=== PATIENT | male | born 1945 | race Caucasian/White ===

== ENCOUNTER 2022-09-06 04:36 | Observation (INO) ==
[2022-09-06] MEDS ORDERED: dilTIAZem HCl 5 MG/ML 5 ML VIAL IV ONE (04:49)
[2022-09-06] MEDS ORDERED: STAT IV Infusion **Titration per Protocol STA (04:51)
[2022-09-06] MEDS ORDERED: dilTIAZem HCl 5 MG/ML 5 ML VIAL IV STA (04:51)
[2022-09-06] MEDS ORDERED: SODIUM CHLORIDE 0.9% 500 ML IV STA (04:51)
--- NOTE | 2022-09-06 04:58 | Emergency Department Note ---
History of Present Illness General Chief complaint: Chest Pain Stated complaint: CHEST PAIN, SOB Time Seen by Provider: 09/06/22 04:46 History of Present Illness This 77-year-old presents to the ER complaining of chest pain and racing heart tonight Location: Chest Quality: Discomfort Severity: Moderate Duration: Tonight Timing: Tonight Context: Patient was concerned and came in Modifying factors: better with nothing; worse with nothing Patient states he has had A. fib before but nothing prolonged. He has been cardioverted. He is in town visiting. Patient denies abdominal pain, fevers, vomiting, recent alcohol use. Home Medications Medication Instructions Recorded Confirmed Type albuterol sulfate 90 mcg/actuation 2 puff inhalation Q4 PRN Shortness 09/06/22 09/06/22 History aerosol inhaler Of Breath Or Wheezing amlodipine 10 mg tablet (Norvasc) 10 mg PO DAILY 09/06/22 09/06/22 History aspirin 81 mg tablet,delayed 81 mg PO DAILY 09/06/22 09/06/22 History release lisinopril 20 1 tab PO BID 09/06/22 09/06/22 History mg-hydrochlorothiazide 12.5 mg tablet pantoprazole 40 mg tablet,delayed 40 mg PO DAILY 09/06/22 09/06/22 History release rosuvastatin 5 mg tablet 5 mg PO DAILY 09/06/22 09/06/22 History umeclidinium 62.5 mcg-vilanterol 1 inh inhalation DAILY PRN 09/06/22 09/06/22 History 25 mcg/actuation powdr for Shortness Of Breath Or Wheezing inhalation (Anoro Ellipta) Allergies Allergy/AdvReac Type Severity Reaction Status Date / Time Beta-Blockers AdvReac decreased Verified 09/06/22 11:21 (Beta-Adrenergic Bloc heart rate penicillin G AdvReac Abdominal Verified 09/06/22 05:27 Pain warfarin AdvReac made legs Verified 09/06/22 11:21 purple Past Med/Surg History Medical History (Updated 09/06/22 @ 04:58 by Janett Gamble PA-C) High blood pressure Surgical History (Updated 09/06/22 @ 04:53 by Janett Gamble PA-C) History of heart artery stent Social History Smoking Status: Former smoker Preferred Language: Cymro Current Living Situation: Spouse Feels Safe at Home: Yes Assistive Devices: None Review of Systems A total of 10 systems reviewed and were otherwise negative Physical Exam Vital Signs Vital Signs - 24 hr 09/06/22 04:48 09/06/22 04:58 09/06/22 04:50 Temperature 36.7 C Temperature Source Oral Pulse Rate 136 H 119 H Pulse Rate [Finger] 81 Pulse Rate from SpO2 Sensor 137 H Respiratory Rate 20 18 16 Respiratory Effort / Characteristics Non-Labored Spontaneous Respiratory Depth Normal Normal Blood Pressure 160/102 H Blood Pressure [Right Arm] 112/81 Blood Pressure Mean 121 Blood Pressure Mean [Right Arm] 91 Pulse Oximetry 98 99 96 Oxygen Delivery Method Room Air Room Air Sepsis New/Unexplained Change in Mental Status N/A Sepsis Action Taken by Nursing No Action Required 09/06/22 04:58 09/06/22 04:58 09/06/22 05:00 Temperature Temperature Source Pulse Rate 81 Pulse Rate [Finger] Pulse Rate from SpO2 Sensor 82 Respiratory Rate 15 Respiratory Effort / Characteristics Respiratory Depth Blood Pressure 112/81 113/84 Blood Pressure [Right Arm] Blood Pressure Mean 91 93 Blood Pressure Mean [Right Arm] Pulse Oximetry 98 Oxygen Delivery Method Sepsis New/Unexplained Change in Mental Status Sepsis Action Taken by Nursing 09/06/22 05:00 09/06/22 05:30 09/06/22 05:30 Temperature Temperature Source Pulse Rate 99 H 83 Pulse Rate [Finger] Pulse Rate from SpO2 Sensor 86 Respiratory Rate 15 19 Respiratory Effort / Characteristics Respiratory Depth Blood Pressure 110/82 Blood Pressure [Right Arm] Blood Pressure Mean 91 Blood Pressure Mean [Right Arm] Pulse Oximetry 100 Oxygen Delivery Method Sepsis New/Unexplained Change in Mental Status Sepsis Action Taken by Nursing 09/06/22 06:00 09/06/22 06:00 09/06/22 06:30 Temperature Temperature Source Pulse Rate 83 93 H Pulse Rate [Finger] Pulse Rate from SpO2 Sensor 86 Respiratory Rate 16 14 Respiratory Effort / Characteristics Respiratory Depth Blood Pressure 106/74 Blood Pressure [Right Arm] Blood Pressure Mean 84 Blood Pressure Mean [Right Arm] Pulse Oximetry 95 Oxygen Delivery Method Sepsis New/Unexplained Change in Mental Status Sepsis Action Taken by Nursing 09/06/22 06:30 09/06/22 07:00 09/06/22 07:00 Temperature Temperature Source Pulse Rate 94 H Pulse Rate [Finger] Pulse Rate from SpO2 Sensor 93 H Respiratory Rate 20 Respiratory Effort / Characteristics Respiratory Depth Blood Pressure 104/72 100/81 Blood Pressure [Right Arm] Blood Pressure Mean 82 87 Blood Pressure Mean [Right Arm] Pulse Oximetry 96 Oxygen Delivery Method Sepsis New/Unexplained Change in Mental Status Sepsis Action Taken by Nursing 09/06/22 07:30 09/06/22 07:30 09/06/22 08:00 Temperature Temperature Source Pulse Rate 88 Pulse Rate [Finger] Pulse Rate from SpO2 Sensor Respiratory Rate 16 Respiratory Effort / Characteristics Respiratory Depth Blood Pressure 111/78 130/70 Blood Pressure [Right Arm] Blood Pressure Mean 89 90 Blood Pressure Mean [Right Arm] Pulse Oximetry Oxygen Delivery Method Sepsis New/Unexplained Change in Mental Status Sepsis Action Taken by Nursing 09/06/22 08:00 09/06/22 08:30 09/06/22 08:30 Temperature Temperature Source Pulse Rate 92 H 92 H Pulse Rate [Finger] Pulse Rate from SpO2 Sensor 90 91 H Respiratory Rate 16 18 Respiratory Effort / Characteristics Respiratory Depth Blood Pressure 109/77 Blood Pressure [Right Arm] Blood Pressure Mean 87 Blood Pressure Mean [Right Arm] Pulse Oximetry 95 96 Oxygen Delivery Method Sepsis New/Unexplained Change in Mental Status Sepsis Action Taken by Nursing 09/06/22 09:00 09/06/22 09:00 09/06/22 09:30 Temperature Temperature Source Pulse Rate 88 Pulse Rate [Finger] Pulse Rate from SpO2 Sensor 91 H Respiratory Rate 19 Respiratory Effort / Characteristics Respiratory Depth Blood Pressure 134/84 131/75 Blood Pressure [Right Arm] Blood Pressure Mean 100 93 Blood Pressure Mean [Right Arm] Pulse Oximetry 94 Oxygen Delivery Method Sepsis New/Unexplained Change in Mental Status Sepsis Action Taken by Nursing 09/06/22 09:30 09/06/22 10:00 09/06/22 10:00 Temperature Temperature Source Pulse Rate 105 H 102 H Pulse Rate [Finger] Pulse Rate from SpO2 Sensor Respiratory Rate 14 13 Respiratory Effort / Characteristics Respiratory Depth Blood Pressure 127/105 H Blood Pressure [Right Arm] Blood Pressure Mean 112 Blood Pressure Mean [Right Arm] Pulse Oximetry 98 Oxygen Delivery Method Sepsis New/Unexplained Change in Mental Status Sepsis Action Taken by Nursing VITALS: Vitals are noted on the nurse's note and reviewed by myself. Vital signs tachycardic. GENERAL: Pleasant gentleman, in no acute distress, nondiaphoretic, well- developed well-nourished. SKIN: The skin was without rashes, erythema, edema, or bruising. There is no tenting of the skin. Capillary reflex less than 2 seconds. HEAD: Normocephalic atraumatic. EARS: External auditory canals clear, EYES: Pupils equal round and reactive to light and accommodation. Conjunctivae without injection, sclerae without icterus. Extraocular movements intact. NOSE: Patent, turbinates without inflammation or discharge. MOUTH: Mucous membranes moist. Pharynx without erythema or exudate. Uvula midline. Airway patent. Tongue does not deviate. NECK: Supple without nuchal rigidity. No lymphadenopathy. No thyromegaly. Cervical spine is nontender. No JVD. HEART: Irregularly irregular LUNGS: Clear to auscultation bilaterally without wheezes, rales or rhonchi. No retractions or accessory muscle use. ABDOMEN: Positive bowel sounds x 4. Normal tympanic percussion. Soft, nontender, without masses or organomegaly. Cardona sign negative. No guarding or rebound tenderness. No CVA tenderness MUSCULOSKELETAL: No muscle atrophy, erythema, or edema noted. NEURO: Patient was alert and oriented to person place and time. Normal sensation to light and sharp touch. No focal neurological deficits. Course Administered Medications Diltiazem HCl 125 mg/ Dextrose 125 mls @ 5 mls/hr IV .Q24H [facility]; Protocol Stop: 10/06/22 04:59 Last Admin: 09/06/22 06:37 Dose: Not Given Documented By: AMELIE Discontinued Medications Diltiazem HCl (Diltiazem Hcl 5 Mg/Ml 5 Ml Vial) Confirm Administered Dose 25 mg IV .ST-MED ONE Stop: 09/06/22 04:50 Last Admin: 09/06/22 04:55 Dose: Not Given Documented By: MOJGAN Diltiazem HCl (Diltiazem Hcl 5 Mg/Ml 5 Ml Vial) 20 mg IV NOW STA Stop: 09/06/22 04:52 Last Admin: 09/06/22 04:50 Dose: 20 mg Documented By: MOJGAN Co-signed By: TRAY Sodium Chloride (Nss) 500 mls @ 999 mls/hr IV .Q31M STA Stop: 09/06/22 05:21 Last Infusion: 09/06/22 05:22 Dose: 0 mls/hr Documented By: Admin: 09/06/22 04:55 Dose: 999 mls/hr Documented By: MOJGAN Sodium Chloride (Nss 1000ml) 1,000 mls @ 100 mls/hr IV .Q10H ONE Stop: 09/06/22 21:58 Last Admin: 09/06/22 14:10 Dose: Not Given Documented By: HALLE Ioversol (Optiray 320 500ml) 125 ml IV ONCE ONE Stop: 09/06/22 06:19 Last Admin: 09/06/22 06:19 Dose: 107 ml Documented By: SLICK Metoprolol Tartrate (Metoprolol Tartrate 1 Mg/Ml Vial) 5 mg IV NOW STA Stop: 09/06/22 11:52 Last Admin: 09/06/22 12:41 Dose: 5 mg Documented By: HALLE Miscellaneous (Stat Iv Infusion Titration Per Protocol) 1 each N/A NOW STA Stop: 09/06/22 04:52 Last Admin: 09/06/22 06:37 Dose: Not Given Documented By: AMELIE Miscellaneous Information (Patient's Allergy Info Needs Entered) 1 each N/A NOW STA Stop: 09/06/22 05:03 Last Admin: 09/06/22 05:27 Dose: 1 each Documented By: AMELIE Nitroglycerin (Nitroglycerin Sl 0.4 Mg/Tab Tab) Confirm Administered Dose 0.4 mg .ROUTE .STK-MED ONE Stop: 09/06/22 11:41 Last Admin: 09/06/22 11:42 Dose: 0.4 mg Documented By: HALLE Nitroglycerin (Nitroglycerin Sl 0.4 Mg/Tab Tab) 0.4 mg SL NOW STA Stop: 09/06/22 11:49 Last Admin: 09/06/22 11:50 Dose: Not Given Documented By: ED Potassium Chloride (Potassium Chloride Crtab 20 Meq Tabcr) 40 meq PO NOW STA Stop: 09/06/22 14:35 Last Admin: 09/06/22 15:23 Dose: 40 meq Documented By: MICHOACANO Medical Decision Making Medical Records Attestation: I reviewed the patient's medical records. Home Medications Current Medication List: was personally reviewed by me Laboratory Data Attestation: I reviewed the patient's lab results. Result diagrams: 09/06/22 04:51 09/06/22 04:51 Lab Results 09/06/22 09/06/22 09/06/22 Range/Units 04:51 04:51 04:51 WBC 5.13 (4.8-10.8) K/ul RBC 4.53 L (4.63-6.08) M/uL Hgb 13.6 L (14.0-18.0) g/dl POC Hgb (14.0-18.0) g/dl Hct 40.1 (40.1-51.0) % POC Hct (42-52) % MCV 88.5 (80.0-100.0) fL MCH 30.0 (25.0-34.0) pg MCHC 33.9 (32.0-36.0) g/dL RDW Std Deviation 43.3 (36.4-46.3) fL RDW Coeff of Helene 13.3 (11.5-14.5) % Plt Count 152 (130-400) K/uL MPV 12.0 (9.4-12.4) fL Immature Gran % (Auto) 0.2 % Neut % (Auto) 56.9 % Lymph % (Auto) 29.6 % [place] % (Auto) 10.9 % Eos % (Auto) 1.6 % Baso % (Auto) 0.8 % Neut # (Auto) 2.92 (1.4-6.5) K/uL Lymph # (Auto) 1.52 (1.2-3.4) K/uL [place] # (Auto) 0.56 (0.24-0.82) K/uL Eos # (Auto) 0.08 (0-0.50) K/uL Baso # (Auto) 0.04 (0-0.2) K/uL Immature Gran # (Auto) 0.01 (0.00-0.02) K/uL POC Sodium (135-144) mmol/L Sodium 137 (136-145) mmol/L POC Potassium (3.3-5.0) mmol/L Potassium 3.2 L (3.5-5.1) mmol/L POC Chloride (101-112) mmol/L Chloride 102 (98-107) mmol/L Carbon Dioxide 29 (21-32) mmol/L POC Total CO2 (24-31) mmol/L Anion Gap 6 (3-11) POC Anion Gap (16-25) mmol/L POC BUN (7-18) mg/dl BUN 17 (6-23) mg/dl Creatinine 0.81 (0.6-1.4) mg/dl POC Creatinine (0.6-1.3) mg/dl Est Cr Clr Drug Dosing 88.8 ml/min Est GFR ( Amer) 99.4 ml/min Est GFR (Non-Af Amer) 85.7 ml/min BUN/Creatinine Ratio 21.0 H (10-20) Glucose 113 H (70-99(Fasting)) mg/dl POC Glucose (other) (70-99) mg/dl Calcium 9.8 (8.5-10.1) mg/dl POC Ioniz Calcium Mimi (1.12-1.32) mmol/l Magnesium 2.0 (1.7-2.4) mg/dl Total Bilirubin 0.4 (0.2-1.0) mg/dl AST 20 (13-39) U/L ALT 13 (7-52) U/L Alkaline Phosphatase 69 (34-104) U/L Troponin I High Sens 7.6 (0-20) pg/ml Total Protein 7.3 (6.0-8.3) gm/dl Albumin 4.6 (3.4-5.0) gm/dl Globulin 2.7 (2.5-4.0) gm/dl Albumin/Globulin Ratio 1.7 (0.9-2) TSH 2.146 (0.300-4.500) uIu/ml SARS-CoV-2, RNA, NAAT (NEGATIVE) 09/06/22 09/06/22 09/06/22 Range/Units 04:56 05:03 07:05 WBC (4.8-10.8) K/ul RBC (4.63-6.08) M/uL Hgb (14.0-18.0) g/dl POC Hgb 14.3 (14.0-18.0) g/dl Hct (40.1-51.0) % POC Hct 42 (42-52) % MCV (80.0-100.0) fL MCH (25.0-34.0) pg MCHC (32.0-36.0) g/dL RDW Std Deviation (36.4-46.3) fL RDW Coeff of Helene (11.5-14.5) % Plt Count (130-400) K/uL MPV (9.4-12.4) fL Immature Gran % (Auto) % Neut % (Auto) % Lymph % (Auto) % [place] % (Auto) % Eos % (Auto) % Baso % (Auto) % Neut # (Auto) (1.4-6.5) K/uL Lymph # (Auto) (1.2-3.4) K/uL [place] # (Auto) (0.24-0.82) K/uL Eos # (Auto) (0-0.50) K/uL Baso # (Auto) (0-0.2) K/uL Immature Gran # (Auto) (0.00-0.02) K/uL POC Sodium 139 (135-144) mmol/L Sodium (136-145) mmol/L POC Potassium 3.2 L (3.3-5.0) mmol/L Potassium (3.5-5.1) mmol/L POC Chloride 99 L (101-112) mmol/L Chloride (98-107) mmol/L Carbon Dioxide (21-32) mmol/L POC Total CO2 27 (24-31) mmol/L Anion Gap (3-11) POC Anion Gap 18.0 (16-25) mmol/L POC BUN 17 (7-18) mg/dl BUN (6-23) mg/dl Creatinine (0.6-1.4) mg/dl POC Creatinine 0.8 (0.6-1.3) mg/dl Est Cr Clr Drug Dosing ml/min Est GFR ( Amer) ml/min Est GFR (Non-Af Amer) ml/min BUN/Creatinine Ratio (10-20) Glucose (70-99(Fasting)) mg/dl POC Glucose (other) 112 H (70-99) mg/dl Calcium (8.5-10.1) mg/dl POC Ioniz Calcium Mimi 1.18 (1.12-1.32) mmol/l Magnesium (1.7-2.4) mg/dl Total Bilirubin (0.2-1.0) mg/dl AST (13-39) U/L ALT (7-52) U/L Alkaline Phosphatase (34-104) U/L Troponin I High Sens 10.3 (0-20) pg/ml Total Protein (6.0-8.3) gm/dl Albumin (3.4-5.0) gm/dl Globulin (2.5-4.0) gm/dl Albumin/Globulin Ratio (0.9-2) TSH (0.300-4.500) uIu/ml SARS-CoV-2, RNA, NAAT NEGATIVE (NEGATIVE) Imaging Data Attestation: I personally reviewed and interpreted this imaging study as follows: Radiologist's Impression: Chest X-Ray 09/06/22 04:58 SINGLE VIEW CHEST CLINICAL HISTORY: Atypical chest pain FINDINGS: 2 AP, portable, upright chest radiographs are obtained. No prior studies are available for comparison at the time of dictation. The heart is mildly enlarged noting atherosclerotic calcification of the thoracic aorta. The pulmonary vasculature is noncongested. Chronic interstitial thickening is similar to previous. There are scattered calcified granulomas. There is elevation of the left hemidiaphragm with left basilar scarring/atelectasis. No airspace consolidation or large pleural effusion is identified. No pneumothorax is seen. The skeletal structures are osteopenic. Degenerative change and moderate thoracal lumbar scoliosis are seen in the spine. The bony thorax is grossly intact. IMPRESSION: No active disease in the chest. ACT 112: Negative or not required by law. Electronically signed by: Sage eLmos M.D. 09/06/2022 8:05 AM Chest CTA 09/06/22 05:56 CT angio chest dissec wo/w con HISTORY: 77 years-old Male cp-back, cxr wide mediastium acute chest and back pain COMPARISON: Chest radiograph of same day TECHNIQUE: CTA of the chest was obtained both with and without the use of 107 mL Optiray 320. 3-D coronal and sagittal MIPS were obtained from the axial data set and were submitted for review. All measurements were obtained according to N ASCET criteria. FINDINGS: CTA: The heart is upper limits of normal in size. No pericardial effusion. Extensive coronary artery calcifications. There is mild fusiform ectasia of the ascending thoracic aorta measuring up to 3.9 x 3.9 cm at the level of the main pulmonary artery. Atherosclerosis of the thoracic aorta without dissection. There is appr oximately 50% luminal narrowing involving the proximal 2 cm of the superior mesenteric artery secondary to atherosclerotic plaque. The opacified pulmonary artery is unremarkable. The noncontrast scan demonstrates no intramural or mediastinal hematoma. CT CHEST: Normal thyroid. No pathologically enlarged lymph nodes are identified. Moderate to marked symmetric gynecomastia. No pleural effusion, airspace consolidation or overt pulmonary edema. 4 mm solid nodule of the right lung apex on image 53. There are several scattered subpleural predominant calcified pulmonary granulomata noted bilaterally. 4 mm subpleural solid nodule of the right lower lobe, image 179. Postresection changes of the left lung. There are a few solid nodules noted within the left lung measuring up to 3 mm. The central airways are patent. Tiny hiatal hernia. Moderate colonic fecal retention. Moderate mid thoracic dextroscoliosis. Degenerative changes of the shoulders and spine. IMPRESSION: 1. 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 No aneurysm or dissection. 2. Prior left lower lobectomy. 3. Scattered calcified pulmonary granulomata noted in addition to low suspicion solid pulmonary nodules measuring up to 4 mm. 4. Moderate mid thoracic dextroscoliosis. 5. Gynecomastia. Please refer to below summary of Fleischner criteria recommendations for follow- up of incidental CT nodules (Manuel Tierney, Guidelines for management of small pulmonary nodules detected on CT scans: A statement from the Fleischner Society, Radiology 237: [id number].) SOLID NODULES Multiple nodules size: <6 mm * Low risk patients: no routine follow-up * high risk patients: optional CT at 12 months Note: newly detected indeterminate nodule in persons 35 years of age or older. * Low risk patients: minimal or absent history of smoking and/or other known risk factors * high risk patients: history of smoking or of other known risk factors (e.g. first degree relative with lung cancer, or exposure to asbestos, radon, uranium) * if a nodule up to 8 mm is partly solid or is ground glass further follow-up is required after 24 months to exclude possible slow growing adenocarcinoma (LEIF) ACT 112: Negative or not required by law. The above report was generated using voice recognition software. It may contain grammatical, syntax or spelling errors. Electronically signed by: Juan A Infante M.D. 09/06/2022 7:24 AM MDM Narrative Prior records/ancillary studies reviewed. Triage Nursing notes reviewed. Additional history obtained from family. The patient's history was concerning for palpitations and chest pain. Differential diagnosis: Etiologies such as A. fib, cardiac ischemia, aortic dissection, pulmonary embolism, pneumonia, pneumothorax, musculoskeletal, infections, pericarditis, myocarditis, esophageal rupture, gastrointestinal, as well as others were entertained. Physical examination: As above. ER treatment provided: An order was placed for continuous cardiac monitoring. The monitor shows a rate of 60-1 80 with a A. fib rhythm. Cardizem with drip, IV fluids On reassessment the patient felt better. Diagnostic interpretation by me: #1 the electrocardiogram was ordered for chest pain EKG: Irregularly irregular with occasional PVC, ST depressions in the inferior leads and lateral leads, rate of 135. Impression A. fib with RVR with ST depre ssions in the inferior lateral leads with occasional PVC interpreted by myself EKG shows no interval abnormalities such as QT prolongation or WPW. There are no findings to suggest Brugada syndrome. Hypertrophic cardiomyopathy was considered but there are no clear historical elements pointing toward this. EKG is not suggestive. The QRS voltage is not extremely large #2 EKG ordered for chest pain EKG: Irregularly irregular, Occasional PVC, ST depression in the lateral leads, rate of 84. Impression A. fib/a flutter with rate improved with occasional PVC with ST depressions in lateral leads interpreted by myself The labs revealed mild anemia Negative troponin and repeat was ordered Imaging studies: Chest x-ray w/ no acute pneumothorax, free air or consolidation per my interpretation. scoliosis present, ? widen mediastium vs scoliosis as above HEART SCORE: Hx: high/mod/low suspicion: 1 ECG: ST depression/nonspecific changes/normal: 1 Age: Greater than 65/45-64/less than 45: 2 Risk factors: (Hypertension, hyperlipidemia, diabetes, coronary disease, tobacco use, cocaine use): 1 Troponin: Greater than 2 times normal limits/1-2 times normal limits/normal: 0 Total: 5 Consultation: A consultation was placed with the hospitalist. The case was discussed and diagnostics were reviewed. The patient was evaluated in the ER for further treatment. Exam and history seem consistent with A. fib/a flutter with RVR. Patient was given Cardizem and started on a drip. He was reassessed multiple times. Medicine is consulted. He will be evaluated for admission. By the evaluation o utlined above emergent etiologies such as aortic dissection, pulmonary embolism, pneumonia, pneumothorax, infections, pericarditis, myocarditis, gastrointestinal, as well as others were deemed relatively unlikely. The pt informed about the findings as listed above. All questions were answered and pleased with the treatment. The chart was completed utilizing [employer] Speech voice recognition software. Grammatical errors, random word insertions, pronoun errors, and incomplete sentences are an occassional consequence of this system due to software limitations, ambient noise, and hardware issues. Any formal questions or concerns about the content, text, or information contained within the body of this dictation should be directly addressed to the physician commercial loan assistant for clarification. Impression & Plan Atrial fibrillation with rapid ventricular response, Chest pain Discharge Plan Visit Data Chief Complaint: Chest Pain Stated Complaint: CHEST PAIN, SOB ED Provider: Britt Mac ED Midlevel Provider: Janett Gamble Discharge Problem: Atrial fibrillation with rapid ventricular response, Chest pain Patient Disposition: Admitted As Inpatient Condition: Fair Discharge Instructions Interventions: ED Discharge Assessment Last Done: 09/06/22 12:07
[2022-09-06] MEDS ORDERED: dilTIAZem HCL 125 MG in DEXTROSE 5% 100 ML IV SCH (05:00)
[2022-09-06] MEDS ORDERED: Patient's ALLERGY Info needs ENTERED STA (05:02)
[2022-09-06 05:03] LABS: Basophils # (auto) 0.04 K/uL (0-0.2); Basophils % (auto) 0.8 %; Eosinophils # (auto) 0.08 K/uL (0-0.50); Eosinophils % (auto) 1.6 %; Hematocrit (blood only) 40.1 % (40.1-51.0); Hemoglobin 13.6 g/dl (14.0-18.0); Immature Granulocytes # (auto) 0.01 K/uL (0.00-0.02); Immature Granulocytes % (auto) 0.2 %; Lymphocytes # (auto) 1.52 K/uL (1.2-3.4); Lymphocytes % (auto) 29.6 %; Mean Corpuscular Hgb Conc 33.9 g/dL (32.0-36.0); Mean Corpuscular Volume 88.5 fL (80.0-100.0); Monocytes # (auto) 0.56 K/uL (0.24-0.82); Monocytes % (auto) 10.9 %; Neutrophils # (auto) 2.92 K/uL (1.4-6.5); Neutrophils % (auto) 56.9 %; Platelet Count 152 K/uL (130-400); RDW Coefficient of Variation 13.3 % (11.5-14.5); RDW Standard Deviation 43.3 fL (36.4-46.3); Red Blood Count 4.53 M/uL (4.63-6.08); White Blood Count 5.13 K/ul (4.8-10.8)
[2022-09-06 05:09] LABS: iSTAT Creatinine 0.8 mg/dl (0.6-1.3); iSTAT Hemoglobin 14.3 g/dl (14.0-18.0); iSTAT Ionized Calcium 1.18 mmol/l (1.12-1.32); iSTAT Potassium 3.2 mmol/L (3.3-5.0)
[2022-09-06 05:26] LABS: Albumin Globulin Ratio 1.7 (0.9-2); Albumin Level 4.6 gm/dl (3.4-5.0); Bilirubin,Total 0.4 mg/dl (0.2-1.0); Calcium 9.8 mg/dl (8.5-10.1); Creatinine Clr Calc Pharmacy 88.8 ml/min; Est GFR (African American) 99.4 ml/min; Est GFR (Non-African American) 85.7 ml/min; Globulin 2.7 gm/dl (2.5-4.0); Potassium 3.2 mmol/L (3.5-5.1); Total Protein 7.3 gm/dl (6.0-8.3)
[2022-09-06 05:28] LABS: Troponin I High Sensitivity 7.6 pg/ml (0-20)
[2022-09-06] MEDS ORDERED: OPTIRAY 320 500ml IV ONE (06:18)
--- NOTE | 2022-09-06 07:26 | CT Scan Report ---
CT angio chest dissec wo/w con HISTORY: 77 years-old Male cp-back, cxr wide mediastium acute chest and back pain COMPARISON: Chest radiograph of same day TECHNIQUE: CTA of the chest was obtained both with and without the use of 107 mL Optiray 320. 3-D cor onal and sagittal MIPS were obtained from the axial data set and were submitted for review. All measu rements were obtained according to NASCET criteria. FINDINGS: CTA: The heart is upper limits of normal in size. No pericardial effusion. Extensive coronary artery calci fications. There is mild fusiform ectasia of the ascending thoracic aorta measuring up to 3.9 x 3.9 c m at the level of the main pulmonary artery. Atherosclerosis of the thoracic aorta without dissection . There is approximately 50% luminal narrowing involving the proximal 2 cm of the superior mesenteric artery secondary to atherosclerotic plaque. The opacified pulmonary artery is unremarkable. The nonc ontrast scan demonstrates no intramural or mediastinal hematoma. CT CHEST: Normal thyroid. No pathologically enlarged lymph nodes are identified. Moderate to marked symmetric g ynecomastia. No pleural effusion, airspace consolidation or overt pulmonary edema. 4 mm solid nodule of the right lung apex on image 53. There are several scattered subpleural predominant calcified pulm onary granulomata noted bilaterally. 4 mm subpleural solid nodule of the right lower lobe, image 179. Postresection changes of the left lung. There are a few solid nodules noted within the left lung niraj suring up to 3 mm. The central airways are patent. Tiny hiatal hernia. Moderate colonic fecal retention. Moderate mid thoracic dextroscoliosis. Degenera tive changes of the shoulders and spine. IMPRESSION: 1. 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 No aneurysm or dissection. 2. Prior left lower lobectomy. 3. Scattered calcified pulmonary granulomata noted in addition to low suspicion solid pulmonary nodul es measuring up to 4 mm. 4. Moderate mid thoracic dextroscoliosis. 5. Gynecomastia. Please refer to below summary of Fleischner criteria recommendations for follow-up of incidental CT n odules (Manuel Tierney, Guidelines for management of small pulmonary nodules detected on CT scans: A sta tement from the Fleischner Society, Radiology 237: [id number].) SOLID NODULES Multiple nodules size: <6 mm * Low risk patients: no routine follow-up * high risk patients: optional CT at 12 months Note: newly detected indeterminate nodule in persons 35 years of age or older. * Low risk patients: minimal or absent history of smoking and/or other known risk factors * high risk patients: history of smoking or of other known risk factors (e.g. first degree relative with lung cancer, or exposure to asbestos, radon, uranium) * if a nodule up to 8 mm is partly solid or is ground glass further follow-up is required after 24 m [address] to exclude possible slow growing adenocarcinoma (LEIF) ACT 112: Negative or not required by law. The above report was generated using voice recognition software. It may contain grammatical, syntax o r spelling errors. Electronically signed by: Juan A Infante M.D. 09/06/2022 7:24 AM
--- NOTE | 2022-09-06 08:06 | XRay Report ---
SINGLE VIEW CHEST CLINICAL HISTORY: Atypical chest pain FINDINGS: 2 AP, portable, upright chest radiographs are obtained. No prior studies are available for comparison at the time of dictation. The heart is mildly enlarged noting atherosclerotic calcificatio n of the thoracic aorta. The pulmonary vasculature is noncongested. Chronic interstitial thickening i s similar to previous. There are scattered calcified granulomas. There is elevation of the left hemid iaphragm with left basilar scarring/atelectasis. No airspace consolidation or large pleural effusion is identified. No pneumothorax is seen. The skeletal structures are osteopenic. Degenerative change a nd moderate thoracal lumbar scoliosis are seen in the spine. The bony thorax is grossly intact. IMPRESSION: No active disease in the chest. ACT 112: Negative or not required by law. Electronically signed by: Sage Lemos M.D. 09/06/2022 8:05 AM
--- NOTE | 2022-09-06 10:47 | History & Physical Report ---
Date of Service September 06, 2022 Assessment & Plan (1) Atrial fibrillation with rapid ventricular response: (2) Chest pain: (3) COPD (chronic obstructive pulmonary disease): (4) HLD (hyperlipidemia): (5) HTN (hypertension): (6) GERD (gastroesophageal reflux disease): Plan A fib with RVR Chest pain -Troponin negative X3. chest CTA and CXR negative for anything acute. -Patient improved with metoprolol IV 5mg. Patient's CP is improving and RVR no longer seen on EKG. -Will transition to metoprolol succinate 25mg HS and see how patient tolerates -Potassium slightly low on labs. Will replete K -Patient has a listed allergy to beta blockers staying that they "decrease his HR". When asked about this allergy patient states that when his HR is in the 50's a beta moise drops his HR to 30-40's -Will continue to monitor HR but believe this is not a true allergy. Will need f/u with PCP and his block hacker regarding further treatment of his paroxysmal a fib. May be sick sinus syndrome underlying potential allergy. -Patient was on Eliquis in the past but is unsure why it was stopped. Patient should discuss with his PCP about AC in the future given his A fib. HLD -Holding home meds. HTN -Holding home meds. COPD -Holding home meds. GERD -Holding home meds. Fluids: none Nutrition: heart healthy Code status: conditional code Dispo: med/surg with tele Thank you for allowing me to participate in the care of your patient. -Dr. 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 He has previously been cardioverted in the past for his A fib. States that he was on Eliquis for A fib in the past but his block hacker stopped it 3 months ago. He was unable to tell me the reason why he stopped this medication. Patient is not from the [facility] and gets most of his care in [place]. Past medical history provided by the patient. Presented to the ED chest pain and racing heart rate. States that at 4am, he suddenly woke up due to his chest pain. He describes it has sharp chest pain located over the middle of his chest. Patient has also been having some SOB on exterion and a dry cough for some time. Patient states that perviously he has never had CP before cardiac caths. While in the ED patient was found to be in A Fib with RVR. CBC, CMP, TSH were unremarkable. Troponin X3 was negative. Primary Care Provider: NO PCP Allergies Allergy/AdvReac Type Severity Reaction Status Date / Time Beta-Blockers AdvReac decreased Verified 09/06/22 11:21 (Beta-Adrenergic Bloc heart rate penicillin G AdvReac Abdominal Verified 09/06/22 05:27 Pain warfarin AdvReac made legs Verified 09/06/22 11:21 purple Home Medications Medication Instructions Recorded Confirmed Type albuterol sulfate 90 mcg/actuation 2 puff inhalation Q4 PRN Shortness 09/06/22 09/06/22 History aerosol inhaler Of Breath Or Wheezing amlodipine 10 mg tablet (Norvasc) 10 mg PO DAILY 09/06/22 09/06/22 History aspirin 81 mg tablet,delayed 81 mg PO DAILY 09/06/22 09/06/22 History release lisinopril 20 1 tab PO BID 09/06/22 09/06/22 History mg-hydrochlorothiazide 12.5 mg tablet pantoprazole 40 mg tablet,delayed 40 mg PO DAILY 09/06/22 09/06/22 History release rosuvastatin 5 mg tablet 5 mg PO DAILY 09/06/22 09/06/22 History umeclidinium 62.5 mcg-vilanterol 1 inh inhalation DAILY PRN 09/06/22 09/06/22 History 25 mcg/actuation powdr for Shortness Of Breath Or Wheezing inhalation (Anoro Ellipta) Past Med/Surg History Medical History (Updated 09/06/22 @ 23:07 by Sage Daly DO) High blood pressure Surgical History (Updated 09/06/22 @ 04:53 by Janett Gamble PA-C) History of heart artery stent Social History Smoking Status: Former smoker Cigarettes Per Day: 0.25 pack; Smoking End Date: 2002; Second Hand Exposure: Yes; Do You Dip or Chew Tobacco: No; Tobacco Cessation Education Requested by Patient: No Hx Alcohol Use: No Hx Substance Use: No Preferred Language: Kyrgyz Communication Ability: Effective Paint Specialist Required: No Beliefs That Will Affect Care: None Current Living Situation: Spouse Other Information That Helps Us Care for You: No Feels Safe at Home: Yes Safety Concerns: Feels Safe At This Time Assistive Devices: None Review of Systems Review of Systems: Constitutional: denies fever, chills, fatigue HEENT: denies congestion, sore throat CV: +chest pain, palpitations Resp: denies shortness of breath, cough GI: denies abdominal pain, nausea, vomiting, constipation, diarrhea : denies pain with urination, change in urinary frequency Neuro: denies new numbness, tingling, weakness Physical Exam Constitutional: well developed and + well hydrated Eyes: PERRL, conjunctivae normal, anicteric sclerae Respiratory: normal respiratory effort, lungs clear to auscultation Cardiovascular: Rate/Rhythm: + tachycardic and + irregularly irregular Extremities: no edema Gastrointestinal (Abdomen): normal bowel sounds, soft, nontender, no hepatosplenomegaly Musculoskeletal: no cyanosis or clubbing, extremities motor strength 5/5 Results & Data Results & Data ([facility]) Vital Signs (Past 12 Hours) Vital Signs Temp Pulse Pulse Resp BP BP Pulse Ox 09/06/22 10:20 113 H 14 105/80 98 09/06/22 08:00 92 H 16 95 09/06/22 08:00 130/70 09/06/22 07:30 88 16 09/06/22 07:30 111/78 09/06/22 07:00 94 H 20 96 09/06/22 07:00 100/81 09/06/22 06:30 104/72 09/06/22 06:30 93 H 14 09/06/22 06:00 83 16 95 09/06/22 06:00 106/74 09/06/22 05:30 83 19 09/06/22 05:30 110/82 09/06/22 05:00 99 H 15 100 09/06/22 05:00 113/84 09/06/22 04:58 112/81 09/06/22 04:58 81 15 98 09/06/22 04:50 119 H 16 96 09/06/22 04:58 36.7 C 81 18 112/81 99 09/06/22 04:48 136 H 20 160/102 H 98 O2 Del Method 09/06/22 10:20 Room Air 09/06/22 08:00 09/06/22 08:00 09/06/22 07:30 09/06/22 07:30 09/06/22 07:00 09/06/22 07:00 09/06/22 06:30 09/06/22 06:30 09/06/22 06:00 09/06/22 06:00 09/06/22 05:30 09/06/22 05:30 09/06/22 05:00 09/06/22 05:00 09/06/22 04:58 09/06/22 04:58 09/06/22 04:50 09/06/22 04:58 Room Air 09/06/22 04:48 Room Air Code Status & VTE Plan VTE Prophylaxis Plan VTE Prophylaxis will be ordered: Yes Supervising Physician Co-Signing Physician Notes I personally examined the patient and verified all rondon points of history and exam, discussed case, and agree with decision making with Dr Daly. Feeling better. Chest pain mostly gone. Notes that he is under a lot of stressnotes he is not sure why because he is normally not a high stress person, but coming in the context of his son moving seems to have been more stressedhe wonders if that may play a role Vitals noted, in general he is awake and alert no distress. HEENT normocephalic atraumatic mucous membranes moist. Cardio is A. fib around 100 210 on the monitor. Neuro no focal deficits. Skin without rashes pallor or icterus. A. fib/RVRrate control improving. I wonder if he is not working towards sick sinus syndrome given that he was bradycardic with beta-blockers before, tac hycardic often nowthat said, nothing clearly indicating this, more than he will definitely does need close and ongoing outpatient follow-up. Discussed ways to do close and fairly accurate home monitoring. Discussed anticoagulationI would recommend, but there is no crisis urgencycan discuss with his PCP and primary block hacker. Lateral ischemic findingsno troponin elevation, await echo, but I suspect this is probably chronic from his pre-existing coronary disease, and can follow-up as an outpatient. Otherwise as above Resident Activity Tracking Resident Involvement: Resident Care Provided Care Provided: Adult [facility] Medicine
[2022-09-06] MEDS ORDERED: NITROGLYCERIN SL 0.4 MG/TAB TAB ONE (11:40)
[2022-09-06] MEDS ORDERED: NITROGLYCERIN SL 0.4 MG/TAB TAB SL STA (11:48)
[2022-09-06] MEDS ORDERED: METOPROLOL TARTRATE 1 MG/ML VIAL IV STA (11:51)
[2022-09-06] MEDS ORDERED: SODIUM CHLORIDE 0.9% 1000ML 1,000 ML IV ONE (11:59)
[2022-09-06] MEDS ORDERED: POTASSIUM CHLORIDE CRTAB 20 MEQ TABCR PO STA (14:34)
--- NOTE | 2022-09-06 18:47 | Billing Data ---
Date of Service September 06, 2022 Coding Level of Care Code 16843 Initial Inpt Care Lvl 3
[2022-09-06] MEDS ORDERED: METOPROLOL SUCC 25MG EXT REL TAB PO SCH (21:00)
--- NOTE | 2022-09-07 06:16 | Electrocardiogram Report ---
Test Reason : Blood Pressure : / mmHG Vent. Rate : 135 BPM Atrial Rate : 144 BPM P-R Int : 000 ms QRS Dur : 090 ms QT Int : 328 ms P-R-T Axes : 000 050 -69 degrees QTc Int : 492 ms Atrial fibrillation with rapid ventricular response with premature ventricular or aberrantly conducte d complexes Abnormal ECG No previous ECGs available Confirmed by Don Lewis ([id number]) on 09/07/2022 6:16:44 AM Referred By: REFERRED SELF Confirmed By:Don Lewis
--- NOTE | 2022-09-07 06:17 | Electrocardiogram Report ---
Test Reason : Blood Pressure : / mmHG Vent. Rate : 084 BPM Atrial Rate : 220 BPM P-R Int : 000 ms QRS Dur : 086 ms QT Int : 388 ms P-R-T Axes : 000 037 -09 degrees QTc Int : 458 ms Atrial fibrillation Nonspecific ST and T wave abnormality Abnormal ECG When compared with ECG of 06-SEP-2022 04:48, Vent. rate has decreased BY [address] less depressed in Anterolateral leads T wave inversion no longer evident in Anterolateral leads Confirmed by Don Lewis ([id number]) on 09/07/2022 6:17:50 AM Referred By: REFERRED SELF Confirmed By:Don Lewis
[2022-09-07] MEDS ORDERED: INFLUENZA VACCINE HIGH DOSE PF 65+ 0.7 ML SYR IM ONE (07:12)
[2022-09-07 08:32] LABS: Hematocrit (blood only) 42.7 % (40.1-51.0); Hemoglobin 14.5 g/dl (14.0-18.0); Mean Corpuscular Hemoglobin 30.1 pg (25.0-34.0); Mean Corpuscular Volume 88.8 fL (80.0-100.0); Mean Platelet Volume 12.4 fL (9.4-12.4); Platelet Count 155 K/uL (130-400); RDW Coefficient of Variation 13.3 % (11.5-14.5); RDW Standard Deviation 43.7 fL (36.4-46.3); Red Blood Count 4.81 M/uL (4.63-6.08); White Blood Count 5.68 K/ul (4.8-10.8)
[2022-09-07 09:12] LABS: BUN Creatinine Ratio 22.2 (10-20); Calcium 9.6 mg/dl (8.5-10.1); Creatinine Clr Calc Pharmacy 99.9 ml/min; Est GFR (African American) 104.3 ml/min; Potassium 4.1 mmol/L (3.5-5.1)
[2022-09-07] MEDS ORDERED: METOPROLOL TARTRATE 25 MG TAB PO STA (11:42)
--- NOTE | 2022-09-07 17:55 | Discharge Summary ---
Date of Service September 07, 2022 Principal Diagnosis A. fib, RVR Discharge Exam In general he is awake and alert pleasant no distress. HEENT normocephalic atraumatic mucous membranes moist. Cardio shows him to be in A. fibrates predominantly 80-100. He did bump up to 150 with walking in the morningafter an additional 25 mg of metoprolol he did not show that kind of a spike again. Breathing unlabored no accessory muscle use good effort. Skin shows no rashes no pallor or icterus. Neuro without focal deficits. Discharge Data Allergies Allergy/AdvReac Type Severity Reaction Status Date / Time Beta-Blockers AdvReac decreased Verified 09/06/22 11:21 (Beta-Adrenergic Bloc heart rate penicillin G AdvReac Abdominal Verified 09/06/22 05:27 Pain warfarin AdvReac made legs Verified 09/06/22 11:21 purple Consultations 09/06/22 05:30 ED Decision to Admit Stat Ordered Studies 09/06/22 05:56 CT angio chest dissec wo/w con Stat Hospital Course (1) Atrial fibrillation with rapid ventricular response: Has had paroxysmal A. fib in the past, presented with RVR up to about 145 beats minute -Rates improved nicely with IV metoprololtransitioned to p.o., titrated to about 50 mg on the daywith reasonable rate control and resolution of symptoms -Safe/stable for homemetoprolol succinate 50 mg nightly for now, titrate and follow rates as an outpatient -Recommended for now (particularly given that he was bradycardic on beta- blockers in the past) that he check heart rates 2-3 times a day randomly to be L to follow closely, follow-up with PCP and cigarette paper tester -Recommended resuming anticoagulation, but after discussion of risk benefit, also recommended that he discuss with his PCP and local cigarette paper tester given that he was on it before and stoppedto the best of his recollection it was just because of easy bruising/easy bleeding from little skin tears, but given that his [id number] would warrant anticoagulation but not emergently, decided it would be best to have this as an ongoing discussion with his PCP and primary cigarette paper tester -Had a degree of chest pain, as well as ST depressions anterior lateral at peak heart rate that resolved with improvementin discussion with his primary cigarette paper tester, this does not sound surprising, and the patient often has a degree of chest pain but has had multiple stress tests all of which have been reassuring, last cath/stenting was in about 2013 -Discussed with prior bradycardia on beta-moise, now A. fib RVR off of beta- blockerit is possible he is slowly working towards sick sinus syndrome, outpatient monitoringno clear indication for pacemaker in the current setting Home on metoprolol succinate 50 mg nightly, PCP and primary cigarette paper tester follow- up in the near future Total Time Total Time Spent Total Time Spent (In Minutes): >30 Discharge Plan Discharge Items Patient Disposition: Home - Self-Care Reason For Visit: A FIB WITH RVR Discharge Diagnosis: atrial fibrillation Condition on Discharge: Fair Activity: Resume your previous activity Non-emergency contact: Primary Care Provider and Rn Call Center Call non-emergency contact if: you have any medication questions, your symptoms worsen and your pain is worsening Follow-up/Referrals: Sheeba Kidd MD [Primary Care Provider] - (PLEASE CALL YOUR PRIMARY CARE PROVIDER TO SCHEDULE A DISCHARGE FOLLOW-UP APPOINTMENT WITHIN 7-10 DAYS.) Diet: Heart Healthy Addtl Attending Provider Instructions: Atrial fibrillation -The main thing that was causing her symptoms was atrial fibrillation racing at inappropriately fast heart rates -Fortunately rates got under control very quickly with metoprolol -The chest pain you are feeling appears to have largely been from your heart going faster than it normally would/faster than it "typically should"but fortunately everything is appearing very stable from a cardiac standpoint -We we will continue on metoprolol to keep heart rates under controlwe will have you at 50 mg of the long-acting metoprolol at bedtime. Like we have been discussing, things like atrial fibrillation are often a bit dynamic, and the treatment regimen is not always "concrete" as somebody story progresses. To that end, the 50 mg of metoprolol appears to be an appropriate dose for now, but we would definitely recommend that you keep an eye on your symptoms and your heart rates so that your regular cigarette paper tester and primary care doctor can adjust the doses as warranted -Since you already check your blood pressure daily, and recommend checking heart rate daily with that. For the next 2 or 3 weeks, it would also be good to have you check your heart rate and additional 2 or 3 times a day at random, so that your regular team can have a pretty good idea of the range in which you run -As we have discussed, given that you were slow on metoprolol in the past, if your heart kicks back into a regular rhythm, or if your conduction system is gradually wearing out, it could easily be the case that you may need a dose reduction in metoprolol in the near future, but in the current situation, definitely makes sense to keep the rates under control -From my perspective, it would definitely make sense to get you back on a blood thinner like Eliquis, but since there is no "crisis emergency" to doing so it makes sense to discuss this more with your family doctor and regular cigarette paper tester -I was able to get a hold of Dr. Couch and update him on your situation, so he is abreast of what is going on, and definitely follow-up with him and your family doctor in the next week/2 weeks back home Pending Studies at Discharge: No Stand-Alone Forms: My [facility], Smoking Cessation Medications and DC Order Prescriptions: New metoprolol succinate 50 mg capsule,sprinkle,ER 24hr 50 mg PO DAILY Qty: 30 0RF Continued lisinopril-hydrochlorothiazide 20-12.5 mg tablet 1 tab PO BID aspirin 81 mg Tablet,Delayed Release (Dr/Ec) 81 mg PO DAILY amlodipine [Norvasc] 10 mg tablet 10 mg PO DAILY pantoprazole 40 mg tablet,delayed release (DR/EC) 40 mg PO DAILY albuterol sulfate 90 mcg/actuation HFA aerosol inhaler 2 puff INHALATION Q4 PRN (Reason: Shortness Of Breath Or Wheezing) rosuvastatin 5 mg tablet 5 mg PO DAILY Anoro Ellipta 62.5-25 mcg/actuation blister with device 1 inh INHALATION DAILY PRN (Reason: Shortness Of Breath Or Wheezing) Discharge Orders: Discharge Order (Routine); Ordered 09/07/22 Ordered By: Faisal Muir Admission Data Admit Date/Time: 09/06/22 10:02 Attending Provider: Faisal Muir Admit Provider: Sage Daly Primary Care Provider: Sheeba Kidd Other Providers: Easton Epperson Other Interventions: Discharge Summary Assessment (RN) Last Done: 09/07/22 15:55 Coding Level of Care Code D/C DAY MANAGEMENT >30 MINS Diagnoses Atrial fibrillation with rapid ventricular response I48.91
--- NOTE | 2022-09-07 23:35 | Electrocardiogram Report ---
Test Reason : Blood Pressure : / mmHG Vent. Rate : 120 BPM Atrial Rate : 122 BPM P-R Int : 000 ms QRS Dur : 084 ms QT Int : 292 ms P-R-T Axes : 000 054 -38 degrees QTc Int : 412 ms Atrial fibrillation with rapid ventricular response with premature ventricular or aberrantly conducte d complexes Nonspecific ST and T wave abnormality Abnormal ECG When compared with ECG of 06-SEP-2022 05:20, Vent. rate has increased by 36 bpm Confirmed by Don Lewis ([id number]) on 09/07/2022 11:34:32 PM Referred By: REFERRED SELF Confirmed By:Don Lewis
== END 2022-09-07 18:12 | disposition home or self-care (01) ==
LOC: ED 04:36 → INTOOBSV 10:02 → EDINP 10:02 → 2W 12:07